=== PATIENT | male | born 1945 | race African-American/Black ===

== ENCOUNTER 2018-06-24 12:56 | Inpatient (IN) | payer MEDICARE, OTHER ==
[~2018-06-24] VITALS: Ht 175.3 cm; Wt 73.0 kg
[2018-06-24] MEDS ORDERED: DILTIAZEM 125 MG in DEXTROSE 5% 100 ML IV SCH (13:18)
[2018-06-24] MEDS ORDERED: DILTIAZEM 5 MG/ML, 5ML IV ONE (13:30)
[2018-06-24] MEDS ORDERED: DILTIAZEM 5 MG/ML, 10ML ONE (13:39)
[2018-06-24 13:55] LABS: INTERNATIONAL NORMALIZED RATIO 1.64 (0.93-1.1); PROTHROMBIN TIME 16.9 Seconds (9.6-11.5)
[2018-06-24 13:58] LABS: ALBUMIN 4.1 g/dL (3.4-5.0); ANION GAP 13 mmol/L (5-15); CALCIUM 9.2 mg/dL (8.5-10.1); CHLORIDE 109 mmol/L (98-107)
--- NOTE | 2018-06-24 14:01 | NUR ---
REPORT FROM KASANDRA CAMACHO. PATIENT IV MEDICATION ORDERED FROM PHARMACY
[2018-06-24 14:03] LABS: ALANINE AMINOTRANSFERASE 234 U/L (12-78); ALKALINE PHOSPHATASE 67 U/L (45-117); TOTAL PROTEIN 7.7 g/dL (6.4-8.2); TROPONIN I 0.089 ng/mL (0.000-0.045)
[2018-06-24 14:11] LABS: MEAN CORPUSCULAR HEMOGLOBIN 31.4 pg (27.5-34.5); MEAN CORPUSCULAR HGB CONC 33.6 g/dL (33.2-36.2); MEAN CORPUSCULAR VOLUME 93.4 fL (81-97); MEAN PLATELET VOLUME 9.7 fL (7.4-10.4); PLATELET COUNT 158 x10^3/uL (130-400); RED BLOOD COUNT 5.29 x10^6/uL (4.38-5.82); RED CELL DISTRIBUTION WIDTH 17.8 % (9.4-14.8)
[2018-06-24 14:13] LABS: BASOPHILS # (AUTO) 0.02 x10^3/uL (0-0.1); BASOPHILS % (AUTO) 0 % (0-1); EOSINOPHILS % (AUTO) 0 % (1-7); LYMPHOCYTES # (AUTO) 1.18 x10^3/uL (1-3.4); LYMPHOCYTES % (AUTO) 10 % (22-44); MD MORPH REVIEW ONLY; MONOCYTES # (AUTO) 0.78 x10^3/uL (0.2-0.8); MONOCYTES % (AUTO) 7 % (2-9); NEUTROPHILS # (AUTO) 9.58 x10^3/uL (1.8-6.8); NEUTROPHILS % (AUTO) 83 % (42-75)
[2018-06-24 14:14] LABS: ANISOCYTOSIS 1+; POLYCHROMASIA 1+
[2018-06-24 14:15] LABS: <PLATELET ESTIMATE> ADEQUATE; LARGE PLATELETS 1+
[2018-06-24] MEDS ORDERED: SODIUM CHLORIDE FLUSH 10ML SYR IVF PRN (15:00)
[2018-06-24] MEDS ORDERED: POLYETHYLENE GLYCOL 17 GM PACKET PO PRN (15:30)
[2018-06-24] MEDS ORDERED: LABETALOL 5MG/ML, 20ML IVPush PRN (15:30)
[2018-06-24] MEDS ORDERED: DOCUSATE 100 MG CAPSULE PO PRN (15:30)
[2018-06-24] MEDS ORDERED: DEXTROSE 4 GM TAB.CHEW PO PRN (15:30)
[2018-06-24] MEDS ORDERED: ACETAMINOPHEN 325 MG TABLET PO PRN (15:30)
[2018-06-24] MEDS ORDERED: DEXTROSE 50%, 50ML SYRINGE IVPush PRN (15:30)
[2018-06-24] MEDS ORDERED: HEPARIN 5,000 UNITS/ML, 1ML SQ SCH (15:30)
[2018-06-24] MEDS ORDERED: ONDANSETRON 2MG/ML, 2ML IVPush PRN (15:30)
[2018-06-24] MEDS ORDERED: DILTIAZEM 125 MG in SODIUM CHLORIDE 0.9% 100 ML IV SCH (15:30)
[2018-06-24] MEDS ORDERED: NITROGLYCERIN 0.4 MG BOTTLE (25 TABS) SL PRN (15:30)
[2018-06-24] MEDS ORDERED: BISACODYL 10 MG SUPP PR PRN (15:30)
[2018-06-24] MEDS ORDERED: GLUCAGON 1 MG IM PRN (15:30)
[2018-06-24] MEDS ORDERED: hydrALAzine 20 MG/ML, 1ML IVPush PRN (15:30)
[2018-06-24] MEDS ORDERED: ONDANSETRON ODT 4 MG PO PRN (15:30)
[2018-06-24] MEDS ORDERED: SODIUM CHLORIDE 0.9% 1,000 ML IV SCH (15:30)
[2018-06-24] MEDS ORDERED: OMEP-110 PO (16:28)
[2018-06-24] MEDS ORDERED: IPRA4AER INH (16:28)
[2018-06-24] MEDS ORDERED: LISI40TA PO (16:28)
[2018-06-24] MEDS ORDERED: ATOR-2 PO (16:28)
[2018-06-24] MEDS ORDERED: POTA20PA25 PO (16:28)
[2018-06-24] MEDS ORDERED: LABE200T6 PO (16:28)
[2018-06-24] MEDS ORDERED: ASPI81TA50 PO (16:31)
[2018-06-24] MEDS ORDERED: QUET400T PO (16:31)
[2018-06-24] MEDS ORDERED: FURO40TA6 PO (16:31)
[2018-06-24 16:49] VITALS: BP 123/97
[2018-06-24 16:54] LABS: TROPONIN I 0.087 ng/mL (0.000-0.045)
[2018-06-24] MEDS ORDERED: HEPARIN 5,000 UNITS/ML, 1ML IV PRN ×2 (17:00→18:30)
[2018-06-24] MEDS ORDERED: HEPARIN 5,000 UNITS/ML, 1ML IV ONE ×2 (17:00→18:30)
[2018-06-24] MEDS ORDERED: HEPARIN 25,000 UNITS/500ML PMX 500 ML IV PRN ×2 (17:00→18:30)
[2018-06-24 17:02] LABS: HEMOGLOBIN A1C 5.9 % (4.2-6.3)
[2018-06-24] MEDS ORDERED: FLUT15.88 NAS (17:24)
[2018-06-24] MEDS ORDERED: CHOL100012 PO (17:24)
[2018-06-24] MEDS ORDERED: LORA-247 PO (17:24)
[2018-06-24] MEDS: INSULIN LISPRO 100 UNITS/ML, PEN SQ-INSULIN SCH ×2 (18:14→20:32)
[2018-06-24 19:30] VITALS: BP 119/83
[2018-06-24] MEDS: SODIUM CHLORIDE FLUSH 10ML SYR IVF SCH (20:32)
[2018-06-25 00:14] LABS: TROPONIN I 0.106 ng/mL (0.000-0.045)
[2018-06-25 01:09] LABS: MICROSCOPIC AUTO
[2018-06-25 01:11] LABS: CULTURE INDICATED? NO
[2018-06-25 01:20] LABS: AMPHETAMINE SCREEN, URINE Negative (Negative); BARBITURATE SCREEN, URINE Negative (Negative); BENZODIAZEPINE SCREEN, URINE Negative (Negative); CANNABINOID SCREEN, URINE Negative (Negative); COCAINE SCREEN, URINE Negative (Negative); METHADONE SCREEN, URINE Negative (Negative); OPIATE SCREEN, URINE Negative (Negative)
[2018-06-25 01:55] VITALS: BP 111/76
[2018-06-25 04:13] VITALS: BP 122/74
[2018-06-25 05:27] LABS: MEAN CORPUSCULAR HGB CONC 33.7 g/dL (33.2-36.2); MEAN CORPUSCULAR VOLUME 91.9 fL (81-97); MEAN PLATELET VOLUME 9.5 fL (7.4-10.4); PLATELET COUNT 142 x10^3/uL (130-400); RED BLOOD COUNT 4.49 x10^6/uL (4.38-5.82); RED CELL DISTRIBUTION WIDTH 17.3 % (9.4-14.8)
[2018-06-25 05:35] LABS: CHLORIDE 114 mmol/L (98-107)
[2018-06-25 05:44] LABS: ALANINE AMINOTRANSFERASE 167 U/L (12-78); ALBUMIN 3.2 g/dL (3.4-5.0); ALKALINE PHOSPHATASE 64 U/L (45-117); ANION GAP 10 mmol/L (5-15); BILIRUBIN,TOTAL 2.9 mg/dL (0.2-1.0); CALCIUM 8.5 mg/dL (8.5-10.1); CHOL/HDL RATIO 5.8; CHOLESTEROL, TOTAL 104 mg/dL (140-239); CREATININE 1.85 mg/dL (0.7-1.3); HDL CHOL % 17 % (26-37); HDL CHOLESTEROL (DIRECT) 18 mg/dL (40-60); LDL CHOLESTEROL,CALCULATED 70 mg/dL (54-169); LDL/HDL RATIO 3.9 (0.5-3.0); TOTAL PROTEIN 6.2 g/dL (6.4-8.2); TRIGLYCERIDES 80 mg/dL (50-200); VLDL CHOLESTEROL 16 mg/dL (0-25)
[2018-06-25 05:48] LABS: BASOPHILS # (AUTO) 0.04 x10^3/uL (0-0.1); BASOPHILS % (AUTO) 0 % (0-1); EOSINOPHILS # (AUTO) 0.05 x10^3/uL (0-0.4); EOSINOPHILS % (AUTO) 0 % (1-7); LYMPHOCYTES # (AUTO) 1.17 x10^3/uL (1-3.4); LYMPHOCYTES % (AUTO) 9 % (22-44); MD MORPH REVIEW ONLY; MONOCYTES # (AUTO) 0.77 x10^3/uL (0.2-0.8); MONOCYTES % (AUTO) 6 % (2-9); NEUTROPHILS # (AUTO) 10.36 x10^3/uL (1.8-6.8); NEUTROPHILS % (AUTO) 84 % (42-75)
[2018-06-25 05:49] LABS: <PLATELET ESTIMATE> ADEQUATE; <PLT MORPHOLOGY> NORMAL PLT MORPH; ANISOCYTOSIS 1+; POLYCHROMASIA 1+
[2018-06-25] MEDS ORDERED: ASPIRIN 325 MG TABLET EC PO SCH (06:00)
[2018-06-25] MEDS: INSULIN LISPRO 100 UNITS/ML, PEN SQ-INSULIN SCH ×4 (07:00→20:47)
[2018-06-25] MEDS: SODIUM CHLORIDE FLUSH 10ML SYR IVF SCH ×2 (07:20→20:40)
[2018-06-25] MEDS ORDERED: REGADENOSON 0.4 MG/5 ML SYRINGE ONE (07:51)
[2018-06-25 08:17] VITALS: BP 119/76
[2018-06-25 13:17] VITALS: BP 113/80
[2018-06-25] MEDS ORDERED: DILTIAZEM 60 MG TABLET PO SCH (14:00)
[2018-06-25] MEDS: APIXABAN 5 MG TABLET PO SCH ×2 (14:40→20:39)
[2018-06-25] MEDS ORDERED: DILTIAZEM 125 MG in SODIUM CHLORIDE 0.9% 100 ML IV SCH (15:30)
[2018-06-25] MEDS: CARVEDILOL 6.25 MG TABLET PO SCH (18:18)
[2018-06-25 18:39] LABS: CLOSTRIDIUM DIFFICILE ANTIGEN NEGATIVE; CLOSTRIDIUM DIFFICILE TOXIN NEGATIVE (Negative)
[2018-06-25 19:15] VITALS: BP 126/87
[2018-06-25] MEDS: OMEPRAZOLE 20 MG CAPSULE.DR PO SCH (20:38)
[2018-06-25] MEDS: ATORVASTATIN 10 MG TABLET PO SCH (20:39)
[2018-06-25] MEDS: QUETIAPINE 100MG TABLET PO SCH (20:39)
[2018-06-25] MEDS: ALBUTEROL/IPRATROPIUM 2.5MG/0.5MG, 3 ML NEB SCH (21:00)
[2018-06-26 01:54] VITALS: BP 106/74
[2018-06-26] MEDS: CARVEDILOL 6.25 MG TABLET PO SCH ×2 (06:01→17:05)
[2018-06-26 06:09] LABS: ALBUMIN 2.6 g/dL (3.4-5.0); ANION GAP 10 mmol/L (5-15); CALCIUM 8.2 mg/dL (8.5-10.1); CHLORIDE 115 mmol/L (98-107)
[2018-06-26 06:12] LABS: ALANINE AMINOTRANSFERASE 127 U/L (12-78); ALKALINE PHOSPHATASE 56 U/L (45-117); BILIRUBIN,TOTAL 3.3 mg/dL (0.2-1.0); CREATININE 1.71 mg/dL (0.7-1.3); TOTAL PROTEIN 5.5 g/dL (6.4-8.2)
[2018-06-26 06:15] LABS: BASOPHILS # (AUTO) 0.01 x10^3/uL (0-0.1); BASOPHILS % (AUTO) 0 % (0-1); EOSINOPHILS # (AUTO) 0.04 x10^3/uL (0-0.4); EOSINOPHILS % (AUTO) 1 % (1-7); LYMPHOCYTES # (AUTO) 1.01 x10^3/uL (1-3.4); LYMPHOCYTES % (AUTO) 12 % (22-44); MD NO; MEAN CORPUSCULAR HEMOGLOBIN 31.2 pg (27.5-34.5); MEAN CORPUSCULAR HGB CONC 33.6 g/dL (33.2-36.2); MEAN CORPUSCULAR VOLUME 92.8 fL (81-97); MEAN PLATELET VOLUME 9.3 fL (7.4-10.4); MONOCYTES # (AUTO) 0.62 x10^3/uL (0.2-0.8); MONOCYTES % (AUTO) 7 % (2-9); NEUTROPHILS # (AUTO) 6.95 x10^3/uL (1.8-6.8); NEUTROPHILS % (AUTO) 81 % (42-75); PLATELET COUNT 130 x10^3/uL (130-400); RED BLOOD COUNT 4.29 x10^6/uL (4.38-5.82); RED CELL DISTRIBUTION WIDTH 17.6 % (9.4-14.8)
[2018-06-26] MEDS: INSULIN LISPRO 100 UNITS/ML, PEN SQ-INSULIN SCH ×4 (07:46→21:00)
[2018-06-26 07:57] VITALS: BP 127/85
[2018-06-26] MEDS: ALBUTEROL/IPRATROPIUM 2.5MG/0.5MG, 3 ML NEB SCH ×2 (09:00→21:00)
[2018-06-26] MEDS: APIXABAN 5 MG TABLET PO SCH ×2 (10:57→21:46)
[2018-06-26] MEDS: ASPIRIN 81 MG TABLET EC PO SCH (10:57)
[2018-06-26] MEDS: SODIUM CHLORIDE FLUSH 10ML SYR IVF SCH ×2 (10:57→21:46)
[2018-06-26] MEDS: OMEPRAZOLE 20 MG CAPSULE.DR PO SCH ×2 (10:57→21:45)
[2018-06-26] MEDS: CHOLECALCIFEROL 1,000 UNIT TABLET PO SCH (10:57)
[2018-06-26 15:00] VITALS: BP 119/80
[2018-06-26 17:04] VITALS: BP 116/74
[2018-06-26 19:48] VITALS: BP 117/80
[2018-06-26] MEDS: ATORVASTATIN 10 MG TABLET PO SCH (21:45)
[2018-06-26] MEDS: QUETIAPINE 100MG TABLET PO SCH (21:45)
[2018-06-27 01:37] VITALS: BP 107/66
[2018-06-27 06:22] VITALS: BP 106/75
[2018-06-27] MEDS: CARVEDILOL 6.25 MG TABLET PO SCH (06:27)
[2018-06-27 06:31] LABS: CHLORIDE 112 mmol/L (98-107)
[2018-06-27 06:44] LABS: ALANINE AMINOTRANSFERASE 95 U/L (12-78); ALBUMIN 2.6 g/dL (3.4-5.0); ALKALINE PHOSPHATASE 57 U/L (45-117); ANION GAP 9 mmol/L (5-15); BILIRUBIN,TOTAL 3.5 mg/dL (0.2-1.0); CALCIUM 8.3 mg/dL (8.5-10.1); CREATININE 1.72 mg/dL (0.7-1.3); MEAN CORPUSCULAR HGB CONC 33.7 g/dL (33.2-36.2); MEAN PLATELET VOLUME 9.1 fL (7.4-10.4); PLATELET COUNT 144 x10^3/uL (130-400); RED BLOOD COUNT 4.37 x10^6/uL (4.38-5.82); RED CELL DISTRIBUTION WIDTH 17.7 % (9.4-14.8); TOTAL PROTEIN 5.7 g/dL (6.4-8.2)
[2018-06-27 07:26] LABS: BASOPHILS % (AUTO) 0 % (0-1); EOSINOPHILS # (AUTO) 0.07 x10^3/uL (0-0.4); EOSINOPHILS % (AUTO) 1 % (1-7); LYMPHOCYTES # (AUTO) 0.75 x10^3/uL (1-3.4); LYMPHOCYTES % (AUTO) 7 % (22-44); MD SCAN; MONOCYTES % (AUTO) 6 % (2-9); NEUTROPHILS # (AUTO) 9.56 x10^3/uL (1.8-6.8); NEUTROPHILS % (AUTO) 87 % (42-75)
[2018-06-27 08:15] VITALS: BP 118/67
[2018-06-27] MEDS: INSULIN LISPRO 100 UNITS/ML, PEN SQ-INSULIN SCH ×2 (08:47→11:47)
[2018-06-27] MEDS: CHOLECALCIFEROL 1,000 UNIT TABLET PO SCH (08:50)
[2018-06-27] MEDS: ASPIRIN 81 MG TABLET EC PO SCH (08:50)
[2018-06-27] MEDS: APIXABAN 5 MG TABLET PO SCH (08:50)
[2018-06-27] MEDS: OMEPRAZOLE 20 MG CAPSULE.DR PO SCH (08:50)
[2018-06-27] MEDS: SODIUM CHLORIDE FLUSH 10ML SYR IVF SCH (08:52)
[2018-06-27] MEDS ORDERED: LACTOBACILLUS CHEW TABLET ONE (08:53)
[2018-06-27] MEDS ORDERED: LACTOBACILLUS CHEW TABLET PO SCH (09:00)
[2018-06-27] MEDS ORDERED: ACETAMINOPHEN 325 MG TABLET PO PRN (09:00)
[2018-06-27] MEDS ORDERED: TAMS-11 PO (10:30)
[2018-06-27] MEDS ORDERED: NITR0.4T SL (10:30)
[2018-06-27] MEDS ORDERED: CARV6.2512 PO (10:30)
[2018-06-27] MEDS ORDERED: APIX5TAB PO (10:30)
[2018-06-27] MEDS ORDERED: ACID1TAB7 PO (10:30)
[2018-06-27] MEDS ORDERED: TAMSULOSIN 0.4 MG CAP.ER.24H PO SCH (10:30)
[2018-06-27] MEDS: ALBUTEROL/IPRATROPIUM 2.5MG/0.5MG, 3 ML NEB SCH (10:45)
[2018-06-27 13:55] VITALS: BP 109/83
[2018-06-27] MEDS ORDERED: SPIR25TA5 PO (14:50)
== END 2018-06-27 17:03 | DRG 682 ==
LOC: ED 15:12 → EDIP 15:29 → 5SO 16:44
PROVIDERS: ADMIT Internal Medicine; ATTEND Internal Medicine
DX: N17.0 Acute kidney failure with tubular necrosis (principal); I50.43 Acute on chronic combined systolic (congestive) and diastolic (congestive) heart failure; I42.9 Cardiomyopathy, unspecified; D68.69 Other thrombophilia; R17 Unspecified jaundice; E87.2 Acidosis; E11.65 Type 2 diabetes mellitus with hyperglycemia; F17.200 Nicotine dependence, unspecified, uncomplicated; I25.2 Old myocardial infarction; I27.20 Pulmonary hypertension, unspecified; I48.2 Chronic atrial fibrillation; J44.9 Chronic obstructive pulmonary disease, unspecified; Z66 Do not resuscitate; Z79.01 Long term (current) use of anticoagulants; Z79.4 Long term (current) use of insulin; Z80.0 Family history of malignant neoplasm of digestive organs; Z91.19 Patient's noncompliance with other medical treatment and regimen; R33.9 Retention of urine, unspecified
CPT/HCPCS: 36415; 36600; 71045; 78452; 80053; 80061; 80307; 81001; 82803; 82962; 83036; 83735; 83880; 84100; 84145; 84443; 84484; 85025; 85520; 85610; 85730; 87324; 93005; 93017; 93306; 94640; 96374; 99291; G0378; J1644; J2785; J7620; A9502; C9898; J1815; J7030